=== PATIENT | male | born 1975 | race Caucasian/White ===

== ENCOUNTER 2021-12-30 10:15 | Emergency (ER) | payer MEDICAID, OTHER ==
[~2021-12-30] VITALS: Ht 167.6 cm; Wt 87.5 kg
[2021-12-30] MEDS ORDERED: ONDANSETRON ODT 4 MG TAB PO ONE (13:45)
[2021-12-30] MEDS ORDERED: MORPHINE SULFATE INJECTION 2 MG/ML SYRG IM ONE (13:45)
[2021-12-30] MEDS ORDERED: ACE3T PO (13:53)
[2021-12-30 13:57] VITALS: BP 118/85
== END 2021-12-30 14:12 | disposition home or self-care (01) ==
LOC: ER 10:15
DX: S16.1XXA Strain of muscle, fascia and tendon at neck level, initial encounter (principal); S63.502A Unspecified sprain of left wrist, initial encounter; S20.211A Contusion of right front wall of thorax, initial encounter; G89.29 Other chronic pain; M54.9 Dorsalgia, unspecified; Z79.899 Other long term (current) drug therapy; W01.0XXA Fall on same level from slipping, tripping and stumbling without subsequent striking against object, initial encounter; Y93.89 Activity, other specified; Y92.89 Other specified places as the place of occurrence of the external cause; Y99.8 Other external cause status
CPT/HCPCS: 29125; 71250; 72125; 73110; 96372; 99284; J2270; Q0162

== ENCOUNTER 2022-01-06 13:42 | Inpatient (IN) | payer MEDICAID ==
[~2022-01-06] VITALS: Ht 170.2 cm; Wt 85.0 kg
[~2022-01-06 13:42] MED LIST: ACE3T PO
[2022-01-06 14:35] LABS: Eosinophils # (auto) 0.1 10 ^3/uL (0-0.8); Lymphocytes # (auto) 0.8 10 ^3/uL (0.4-5.4); Monocytes # (auto) 0.6 10 ^3/uL (0-1.3); Monocytes % (auto) 6.2 % (0.0-12.0); Nucleated Red Blood Cells % 0.1 %
[2022-01-06 14:36] LABS: Basophils # (auto) 0 10 ^3/uL (0-0.2); Basophils % (auto) 0.4 % (0.0-2.0); Eosinophils % (auto) 0.8 % (0.0-7.0); Hematocrit 48.6 % (41.0-53.0); Hemoglobin 16.3 g/dL (13.5-17.5); Lymphocytes % (auto) 7.7 % (10.0-50.0); Mean Corpuscular Hemoglobin 25.2 pg (28.0-32.0); Mean Corpuscular Hgb Conc. 33.6 g/dL (32.0-36.0); Mean Corpuscular Volume 74.9 fL (80.0-100.0); Neutrophils # (auto) 8.9 10 ^3/uL (1.6-8.6); Neutrophils % (auto) 84.9 % (37.0-80.0); Red Blood Cells 6.49 10^6/uL (4.5-5.90); Red Cell Distribution Width 16.7 % (11.8-14.3); White Blood Cell 10.4 10^3/uL (4.4-10.8)
[2022-01-06 14:58] LABS: Albumin 2.9 g/dL (3.4-5.0); BUN/Creatinine Ratio 16.5; Calcium 8.6 mg/dL (8.5-10.1); Potassium 4.3 mmol/L (3.5-5.1)
[2022-01-06 15:01] LABS: Bilirubin, Total 0.3 mg/dL (0.2-1.0); Total Protein 6.9 g/dL (6.4-8.2)
[2022-01-06] MEDS ORDERED: diphenhdrAMINE HCL 50 MG/1 ML VL IV ONE (19:30)
[2022-01-06] MEDS ORDERED: SODIUM CHLORIDE 0.9% 1,000 ML IV ONE (19:30)
[2022-01-06] MEDS ORDERED: KETOROLAC TROMETH 30 MG/ML 1ML VIAL IV ONE (19:30)
[2022-01-06] MEDS ORDERED: TEMAZEPAM 15 MG CAP PO PRN (22:15)
[2022-01-06] MEDS ORDERED: HYDROcodone-ACET 5/325MG TAB PO PRN (22:15)
[2022-01-06 23:17] LABS: Calcium 8.2 mg/dL (8.5-10.1); Potassium 4.2 mmol/L (3.5-5.1)
[2022-01-06 23:25] LABS: BUN/Creatinine Ratio 16.7; CRP High Sensitivity 5.7 mg/dL (< 0.3)
[2022-01-07 02:57] VITALS: BP 127/86
[2022-01-07 03:00] VITALS: BP 127/86
[2022-01-07] MEDS: KETOROLAC TROMETH 30 MG/ML 1ML VIAL IV PRN ×2 (03:18→09:25)
[2022-01-07 09:00] VITALS: BP 138/85
[2022-01-07] MEDS: PANTOPRAZOLE 40 MG TAB PO SCH (09:25)
[2022-01-07] MEDS ORDERED: CEFTRIAXONE SODIUM 2 GM in D5W 5% 50 ML IV ONE (11:00)
[2022-01-07] MEDS ORDERED: VANCOMYCIN PER PHARMACY 0 MG IV SCH (11:00)
[2022-01-07 12:00] VITALS: BP 138/70
[2022-01-07 12:16] LABS: Basophils # (auto) 0 10 ^3/uL (0-0.2); Eosinophils # (auto) 0.1 10 ^3/uL (0-0.8); Eosinophils % (auto) 1.5 % (0.0-7.0); Lymphocytes # (auto) 0.7 10 ^3/uL (0.4-5.4); Mean Corpuscular Volume 75.5 fL (80.0-100.0); Monocytes # (auto) 0.5 10 ^3/uL (0-1.3); Red Cell Distribution Width 16.5 % (11.8-14.3)
[2022-01-07 12:19] LABS: Basophils % (auto) 0.4 % (0.0-2.0); Hemoglobin 15.1 g/dL (13.5-17.5); Lymphocytes % (auto) 8.4 % (10.0-50.0); Mean Corpuscular Hemoglobin 24.8 pg (28.0-32.0); Mean Corpuscular Hgb Conc. 32.9 g/dL (32.0-36.0); Monocytes % (auto) 6.6 % (0.0-12.0); Neutrophils # (auto) 6.5 10 ^3/uL (1.6-8.6); Neutrophils % (auto) 83.1 % (37.0-80.0); Nucleated Red Blood Cells % 0.1 %; White Blood Cell 7.8 10^3/uL (4.4-10.8)
[2022-01-07 12:28] LABS: Albumin 2.5 g/dL (3.4-5.0); BUN/Creatinine Ratio 16.5; Calcium 8.3 mg/dL (8.5-10.1); Potassium 4.3 mmol/L (3.5-5.1)
[2022-01-07 12:30] LABS: Bilirubin, Total 0.5 mg/dL (0.2-1.0)
[2022-01-07 12:59] LABS: Thyroid Stimulating Hormone 1.1 uIU/mL (0.358-3.74)
[2022-01-07] MEDS ORDERED: GADOTERATE MEG 7.5 MMOL/15ml INJ (0.5MMOL/ml) IV ONE (13:23)
[2022-01-07] MEDS: SODIUM CHLORIDE 0.9% 1,000 ML IV SCH (14:53)
[2022-01-07] MEDS: MORPHINE SULFATE INJECTION 2 MG/ML SYRG IV PRN ×2 (14:58→18:58)
[2022-01-07] MEDS: VANCOMYCIN 1GM/250ML 250 ML IV SCH (15:30)
[2022-01-07 16:00] VITALS: BP 134/73
[2022-01-07] MEDS: ACETAMINOPHEN 325 MG TAB PO PRN (19:14)
[2022-01-07] MEDS ORDERED: LORazepam 2MG/ML-1ML VIAL IV PRN (21:30)
[2022-01-07 22:00] VITALS: BP 130/77
[2022-01-08] MEDS: CEFTRIAXONE SODIUM 2 GM in D5W 5% 50 ML IV SCH ×3 (00:01→21:20)
[2022-01-08] MEDS: MORPHINE SULFATE INJECTION 2 MG/ML SYRG IV PRN ×3 (00:03→15:04)
[2022-01-08 05:00] VITALS: BP 121/66
[2022-01-08 07:13] LABS: Basophils % (auto) 0.6 % (0.0-2.0); Eosinophils # (auto) 0.1 10 ^3/uL (0-0.8); Lymphocytes # (auto) 0.7 10 ^3/uL (0.4-5.4); Monocytes # (auto) 0.4 10 ^3/uL (0-1.3)
[2022-01-08 07:14] LABS: Basophils # (auto) 0.1 10 ^3/uL (0-0.2); Eosinophils % (auto) 1.1 % (0.0-7.0); Hematocrit 44.3 % (41.0-53.0); Hemoglobin 14.9 g/dL (13.5-17.5); Lymphocytes % (auto) 7.5 % (10.0-50.0); Mean Corpuscular Hemoglobin 25.1 pg (28.0-32.0); Mean Corpuscular Hgb Conc. 33.5 g/dL (32.0-36.0); Mean Corpuscular Volume 74.9 fL (80.0-100.0); Monocytes % (auto) 4.8 % (0.0-12.0); Neutrophils # (auto) 7.5 10 ^3/uL (1.6-8.6); Nucleated Red Blood Cells % 0.2 %; Red Blood Cells 5.92 10^6/uL (4.5-5.90); Red Cell Distribution Width 16.7 % (11.8-14.3); White Blood Cell 8.7 10^3/uL (4.4-10.8)
[2022-01-08] MEDS: SODIUM CHLORIDE 0.9% 1,000 ML IV SCH ×2 (07:30→17:24)
[2022-01-08 09:00] VITALS: BP 116/67
[2022-01-08] MEDS: PANTOPRAZOLE 40 MG TAB PO SCH (09:15)
[2022-01-08] MEDS ORDERED: DOXY25TA9 PO (09:23)
[2022-01-08] MEDS: ONDANSETRON HCL 4 MG/2 ML VIAL IV PRN ×2 (09:35→15:04)
[2022-01-08 11:20] LABS: INR 1.2 (0.9-1.15); Partial Thromboplastin Time 28.2 sec (23.6-33.0)
[2022-01-08] MEDS ORDERED: LIDOCAINE 2%HCL (LOCAL ANESTH.) INJ 10ml MDV ONE (11:36)
[2022-01-08 11:58] LABS: Hepatitis B Core IgM Negative
[2022-01-08 13:04] VITALS: BP 112/60
[2022-01-08 15:28] LABS: CSF White Blood Cells 18 CUMM (0-5)
[2022-01-08] MEDS ORDERED: CYCL-839 PO (16:00)
[2022-01-08] MEDS ORDERED: TRAZ50TA2 PO (16:00)
[2022-01-08] MEDS ORDERED: IBUP600T27 PO (16:00)
[2022-01-08] MEDS ORDERED: GABA-339 PO (16:00)
[2022-01-08] MEDS ORDERED: OMEP20TA PO (16:00)
[2022-01-08] MEDS ORDERED: DOCUSATE SOD 100 MG CAP PO PRN (16:00)
[2022-01-08] MEDS ORDERED: CHOL20007 PO (16:00)
[2022-01-08] MEDS ORDERED: FERR27TA2 PO (16:00)
[2022-01-08] MEDS ORDERED: PYRI1TAB3 PO (16:00)
[2022-01-08] MEDS ORDERED: DOCU100T15 PO (16:00)
[2022-01-08] MEDS ORDERED: PYRI1TAB10 PO (16:01)
[2022-01-08 17:00] VITALS: BP 157/87
[2022-01-08] MEDS: VANCOMYCIN 1GM/250ML 250 ML IV SCH (17:00)
[2022-01-08 17:31] LABS: Protein, Urine 347.9 mg/dL (0.0-11.9)
[2022-01-08 22:00] VITALS: BP 134/79
[2022-01-08] MEDS: traZODone HCL 50 MG TAB PO SCH (22:18)
[2022-01-09] MEDS: VANCOMYCIN 1GM/250ML 250 ML IV SCH ×3 (02:30→23:12)
[2022-01-09 05:00] VITALS: BP 134/78
[2022-01-09] MEDS: SODIUM CHLORIDE 0.9% 1,000 ML IV SCH ×2 (05:34→21:25)
[2022-01-09 08:26] LABS: Urine Bacteria NONE SEEN /hpf (None Seen); Urine Blood Negative /uL (Negative); Urine Specific Gravity 1.015 (1.001-1.035); Urine WBC 1 /hpf (0 - 3)
[2022-01-09 08:53] VITALS: BP 130/91
[2022-01-09] MEDS: PANTOPRAZOLE 40 MG TAB PO SCH (09:56)
[2022-01-09] MEDS: CEFTRIAXONE SODIUM 2 GM in D5W 5% 50 ML IV SCH ×2 (09:56→21:25)
[2022-01-09] MEDS: ACETAMINOPHEN 325 MG TAB PO PRN ×2 (10:23→23:12)
[2022-01-09] MEDS ORDERED: ACYCLOVIR 10MG/KG Q8HR PER RX 0 ML IV STA (10:26)
[2022-01-09 13:00] VITALS: BP 132/87
[2022-01-09] MEDS ORDERED: LOSARTAN POTASSIUM 25 MG TAB PO ONE (14:00)
[2022-01-09 17:00] VITALS: BP 133/82
[2022-01-09] MEDS: ACYCLOVIR SOD 50MG/ML 800 MG in SODIUM CHL 0.9% 250 ML IV SCH ×2 (17:20→21:24)
[2022-01-09] MEDS: traZODone HCL 50 MG TAB PO SCH (21:40)
[2022-01-09 22:00] VITALS: BP 145/79
[2022-01-10] MEDS: ACYCLOVIR SOD 50MG/ML 800 MG in SODIUM CHL 0.9% 250 ML IV SCH ×3 (04:25→20:29)
[2022-01-10 05:00] VITALS: BP 123/79
[2022-01-10] MEDS: SODIUM CHLORIDE 0.9% 1,000 ML IV SCH ×2 (05:00→14:07)
[2022-01-10 06:12] LABS: Potassium 3.9 mmol/L (3.5-5.1)
[2022-01-10 06:19] LABS: BUN/Creatinine Ratio 10.2; Calcium 8.6 mg/dL (8.5-10.1)
[2022-01-10 07:30] VITALS: BP 132/87
[2022-01-10 08:00] VITALS: BP 140/87
[2022-01-10] MEDS: CEFTRIAXONE SODIUM 2 GM in D5W 5% 50 ML IV SCH ×2 (09:38→23:07)
[2022-01-10] MEDS: VANCOMYCIN 1GM/250ML 250 ML IV SCH ×2 (09:38→18:23)
[2022-01-10] MEDS: PANTOPRAZOLE 40 MG TAB PO SCH (09:39)
[2022-01-10] MEDS: LOSARTAN POTASSIUM 25 MG TAB PO SCH (09:39)
[2022-01-10 12:00] VITALS: BP 141/88
[2022-01-10] MEDS: ONDANSETRON HCL 4 MG/2 ML VIAL IV PRN (15:24)
[2022-01-10] MEDS: MORPHINE SULFATE INJECTION 2 MG/ML SYRG IV PRN (15:24)
[2022-01-10 16:00] VITALS: BP 131/74
[2022-01-10] MEDS: ACETAMINOPHEN 325 MG TAB PO PRN (20:39)
[2022-01-10 22:00] VITALS: BP 138/83
[2022-01-10] MEDS: traZODone HCL 50 MG TAB PO SCH (23:07)
[2022-01-11] MEDS: SODIUM CHLORIDE 0.9% 1,000 ML IV SCH ×3 (01:09→21:51)
[2022-01-11] MEDS: ACYCLOVIR SOD 50MG/ML 800 MG in SODIUM CHL 0.9% 250 ML IV SCH ×3 (04:00→20:13)
[2022-01-11 05:00] VITALS: BP 138/88
[2022-01-11] MEDS: VANCOMYCIN 1GM/250ML 250 ML IV SCH ×2 (05:20→14:37)
[2022-01-11 08:00] VITALS: BP 143/99
[2022-01-11] MEDS: CEFTRIAXONE SODIUM 2 GM in D5W 5% 50 ML IV SCH ×2 (09:04→21:51)
[2022-01-11] MEDS: PANTOPRAZOLE 40 MG TAB PO SCH (09:05)
[2022-01-11] MEDS: LOSARTAN POTASSIUM 25 MG TAB PO SCH (09:05)
[2022-01-11] MEDS: ACETAMINOPHEN 325 MG TAB PO PRN ×2 (09:18→19:10)
[2022-01-11 12:00] VITALS: BP 141/85
[2022-01-11 13:59] LABS: Basophils # (auto) 0.1 10 ^3/uL (0-0.2); Eosinophils # (auto) 0.1 10 ^3/uL (0-0.8); Eosinophils % (auto) 1.1 % (0.0-7.0); Neutrophils # (auto) 5.7 10 ^3/uL (1.6-8.6); White Blood Cell 7.6 10^3/uL (4.4-10.8)
[2022-01-11 14:01] LABS: Basophils % (auto) 0.8 % (0.0-2.0); Hematocrit 46.7 % (41.0-53.0); Hemoglobin 15.6 g/dL (13.5-17.5); Lymphocytes # (auto) 1.4 10 ^3/uL (0.4-5.4); Lymphocytes % (auto) 17.8 % (10.0-50.0); Mean Corpuscular Hemoglobin 24.9 pg (28.0-32.0); Mean Corpuscular Hgb Conc. 33.4 g/dL (32.0-36.0); Mean Corpuscular Volume 74.6 fL (80.0-100.0); Monocytes # (auto) 0.4 10 ^3/uL (0-1.3); Monocytes % (auto) 5.3 % (0.0-12.0); Nucleated Red Blood Cells % 0.2 %; Red Blood Cells 6.26 10^6/uL (4.5-5.90); Red Cell Distribution Width 16.4 % (11.8-14.3)
[2022-01-11 14:10] LABS: INR 1.14 (0.9-1.15)
[2022-01-11 15:39] LABS: Urine Bacteria FEW /hpf (None Seen); Urine Blood TRACE /uL (Negative); Urine Mucus FEW (None Seen); Urine WBC 1 /hpf (0 - 3)
[2022-01-11 16:00] VITALS: BP 135/82
[2022-01-11] MEDS: MORPHINE SULFATE INJECTION 2 MG/ML SYRG IV PRN ×2 (16:35→21:52)
[2022-01-11] MEDS: ONDANSETRON HCL 4 MG/2 ML VIAL IV PRN (16:40)
[2022-01-11] MEDS: traZODone HCL 50 MG TAB PO SCH (21:51)
[2022-01-11 21:54] VITALS: BP 128/84
[2022-01-12] MEDS: VANCOMYCIN 1GM/250ML 250 ML IV SCH (01:33)
[2022-01-12] MEDS: ACYCLOVIR SOD 50MG/ML 800 MG in SODIUM CHL 0.9% 250 ML IV SCH (04:38)
[2022-01-12 04:54] VITALS: BP 138/84
[2022-01-12] MEDS: SODIUM CHLORIDE 0.9% 1,000 ML IV SCH ×2 (07:00→17:00)
[2022-01-12 09:09] VITALS: BP 118/80
[2022-01-12] MEDS ORDERED: MORPHINE SULFATE 4 MG/ML SYR/VIAL IV PRN ×2 (09:45→13:30)
[2022-01-12] MEDS: CEFTRIAXONE SODIUM 2 GM in D5W 5% 50 ML IV SCH (10:00)
[2022-01-12] MEDS: PANTOPRAZOLE 40 MG TAB PO SCH (10:16)
[2022-01-12] MEDS: LOSARTAN POTASSIUM 25 MG TAB PO SCH (10:18)
[2022-01-12 13:00] VITALS: BP 143/94
[2022-01-12] MEDS: PENICILLIN G POTASSIUM 4,000,000 UNITS in D5W 5% 50 ML IV SCH ×5 (13:32→22:09)
[2022-01-12 17:05] VITALS: BP 146/94
[2022-01-12] MEDS ORDERED: HYDROcodone-ACET 5/325MG TAB PO PRN (17:45)
[2022-01-12] MEDS: MORPHINE SULFATE 4 MG/ML SYR/VIAL IV PRN (20:20)
[2022-01-12 22:00] VITALS: BP 135/80
[2022-01-12] MEDS: traZODone HCL 50 MG TAB PO SCH (22:10)
[2022-01-13] MEDS: PENICILLIN G POTASSIUM 4,000,000 UNITS in D5W 5% 50 ML IV SCH ×6 (01:51→21:46)
[2022-01-13] MEDS: SODIUM CHLORIDE 0.9% 1,000 ML IV SCH ×2 (02:06→11:48)
[2022-01-13 05:00] VITALS: BP 140/77
[2022-01-13 06:29] LABS: Potassium 4.1 mmol/L (3.5-5.1)
[2022-01-13 06:30] LABS: BUN/Creatinine Ratio 10.6; Calcium 8.3 mg/dL (8.5-10.1)
[2022-01-13 08:36] VITALS: BP 146/97
[2022-01-13] MEDS: PANTOPRAZOLE 40 MG TAB PO SCH (10:28)
[2022-01-13] MEDS ORDERED: APIXABAN 5 MG TAB PO ONE (11:30)
[2022-01-13 12:43] VITALS: BP 143/104
[2022-01-13] MEDS ORDERED: APIX5TAB PO (12:48)
[2022-01-13 16:39] VITALS: BP 132/79
[2022-01-13 21:02] VITALS: BP 140/80
[2022-01-13] MEDS: traZODone HCL 50 MG TAB PO SCH (21:46)
[2022-01-13] MEDS: APIXABAN 5 MG TAB PO SCH (21:47)
[2022-01-14] MEDS: PENICILLIN G POTASSIUM 4,000,000 UNITS in D5W 5% 50 ML IV SCH ×3 (02:12→11:02)
[2022-01-14] MEDS: SODIUM CHLORIDE 0.9% 1,000 ML IV SCH ×2 (02:13→09:34)
[2022-01-14] MEDS: ONDANSETRON HCL 4 MG/2 ML VIAL IV PRN (02:13)
[2022-01-14] MEDS: MORPHINE SULFATE 4 MG/ML SYR/VIAL IV PRN (02:14)
[2022-01-14 05:00] VITALS: BP 142/79
[2022-01-14 09:00] VITALS: BP 123/71
[2022-01-14] MEDS: PANTOPRAZOLE 40 MG TAB PO SCH (09:42)
[2022-01-14] MEDS: APIXABAN 5 MG TAB PO SCH (09:42)
[2022-01-14] MEDS ORDERED: HYDR-4902 PO (11:32)
[2022-01-14 11:40] VITALS: BP 118/80
[2022-01-20] MEDS ORDERED: APIXABAN 5 MG TAB PO SCH (10:00)
== END 2022-01-14 13:41 | disposition home health service (06) | DRG 51 ==
LOC: ER 13:42 → OVERFLOW 22:12 → WEST WING 01-07 02:45
PROVIDERS: ADMIT Nurse Practitioner; ATTEND Internal Medicine Nephrology
PROC: 009U3ZX Drainage of Spinal Canal, Percutaneous Approach, Diagnostic (ICD-10-PCS; principal; 2022-01-06)
PROC: B01B1ZZ Fluoroscopy of Spinal Cord using Low Osmolar Contrast (ICD-10-PCS; 2022-01-06)
PROC: 05HB33Z Insertion of Infusion Device into Right Basilic Vein, Percutaneous Approach (ICD-10-PCS; 2022-01-08)
PROC: B54MZZA Ultrasonography of Right Upper Extremity Veins, Guidance (ICD-10-PCS; 2022-01-08)
PROC: 05HC33Z Insertion of Infusion Device into Left Basilic Vein, Percutaneous Approach (ICD-10-PCS; 2022-01-13)
PROC: B54NZZA Ultrasonography of Left Upper Extremity Veins, Guidance (ICD-10-PCS; 2022-01-13)
DX: A87.9 Viral meningitis, unspecified (principal); B49 Unspecified mycosis; I82.621 Acute embolism and thrombosis of deep veins of right upper extremity; A53.0 Latent syphilis, unspecified as early or late; D72.829 Elevated white blood cell count, unspecified; E78.5 Hyperlipidemia, unspecified; S16.1XXA Strain of muscle, fascia and tendon at neck level, initial encounter; M65.9 Synovitis and tenosynovitis, unspecified; G02 Meningitis in other infectious and parasitic diseases classified elsewhere; T78.40XA Allergy, unspecified, initial encounter; Z20.822 Contact with and (suspected) exposure to COVID-19; G89.29 Other chronic pain; M19.012 Primary osteoarthritis, left shoulder; M54.50 Low back pain, unspecified; I82.611 Acute embolism and thrombosis of superficial veins of right upper extremity; S63.502A Unspecified sprain of left wrist, initial encounter; X58.XXXA Exposure to other specified factors, initial encounter; Y93.89 Activity, other specified; Z79.01 Long term (current) use of anticoagulants; Y92.89 Other specified places as the place of occurrence of the external cause; Y99.8 Other external cause status
CPT/HCPCS: 36415; 62272; 70551; 71046; 72100; 72141; 72142; 72157; 73221; 76536; 80048; 80053; 80202; 81001; 82550; 82565; 82570; 82945; 83516; 83520; 83605; 83615; 84156; 84157; 84443; 85025; 85610; 85652; 85730; 86141; 86200; 86225; 86235; 86256; 86431; 86592; 86635; 86703; 86705; 86803; 87040; 87070; 87086; 87205; 87340; 87529; 87899; 89051; 93971; 96361; 96374; 96375; G0378; J0696; J1885; J2001; J2405; J7060

== ENCOUNTER 2023-12-22 11:30 | Inpatient (IN) | payer MEDICAID, SELFPAY ==
[~2023-12-22] VITALS: Ht 172.7 cm; Wt 91.6 kg
[~2023-12-22 11:30] MED LIST changes: +APIX5TAB PO; +CHOL20007 PO; +CYCL-839 PO; +DOCU100T15 PO; +DOXY25TA9 PO; +FERR1TAB31 PO; +GABA-339 PO; +HYDR-4902 PO; +OMEP20TA PO; +PYRI1TAB10 PO; +PYRI1TAB3 PO; +TRAZ-227 PO
[2023-12-22 12:36] LABS: Basophils # (auto) 0 10 ^3/uL (0-0.2); Basophils % (auto) 0.5 % (0.0-2.0); Eosinophils # (auto) 0.1 10 ^3/uL (0-0.8); Eosinophils % (auto) 1.7 % (0.0-7.0); Hemoglobin 19.4 g/dL (13.5-17.5); Lymphocytes % (auto) 32.6 % (10.0-50.0); Mean Corpuscular Hemoglobin 25.1 pg (28.0-32.0); Mean Corpuscular Hgb Conc. 32.5 g/dL (32.0-36.0); Mean Corpuscular Volume 77.4 fL (80.0-100.0); Monocytes # (auto) 0.6 10 ^3/uL (0-1.3); Monocytes % (auto) 9.3 % (0.0-12.0); Neutrophils # (auto) 3.3 10 ^3/uL (1.6-8.6); Neutrophils % (auto) 55.9 % (37.0-80.0); Nucleated Red Blood Cells % 0.1 %; Red Blood Cells 7.72 10^6/uL (4.5-5.90); Red Cell Distribution Width 16.7 % (11.8-14.3)
[2023-12-22 12:37] LABS: Hematocrit 59.7 % (41.0-53.0)
[2023-12-22 13:00] LABS: Alanine Aminotransferase 63 U/L (7-40); Albumin 4.2 g/dL (3.2-4.8); Alkaline Phosphatase 53 U/L (46-116); Anion Gap 4 (5-15); Aspartate Aminotransferase 56 U/L (13-40); BUN/Creatinine Ratio 10.9 (10.0-20.0); Bilirubin, Total 0.8 mg/dL (0.2-1.0); Blood Urea Nitrogen 15 mg/dL (9-23); Calcium 9.3 mg/dL (8.5-10.1); Carbon Dioxide 26 mmol/L (20-30); Chloride 108 mmol/L (98-107); Glucose 98 mg/dL (74-106); Potassium 4.6 mmol/L (3.5-5.1); Sodium 138 mmol/L (136-145); Total Protein 6.7 g/dL (5.7-8.2)
[2023-12-22 13:29] LABS: Urine Bacteria None Seen /hpf (None Seen)
[2023-12-22 13:45] LABS: Urine Blood Negative /uL (Negative); Urine Clarity Clear (Clear); Urine Color Light-Yellow (Yellow); Urine Protein, UAD Negative (Negative); Urine Urobilinogen Normal (Negative); Urine WBC 1 /hpf (0 - 3)
[2023-12-22] MEDS ORDERED: ASPirin-EC 81 mg tab PO ONE (13:45)
[2023-12-22] MEDS ORDERED: ONDANSETRON HCL 4 MG/2 ML VIAL IV PRN (14:15)
[2023-12-22] MEDS ORDERED: DOCUSATE SOD 100 MG CAP PO PRN (14:15)
[2023-12-22] MEDS ORDERED: NITROGLYCERIN 0.4 MG SL TAB SL PRN (14:15)
[2023-12-22] MEDS ORDERED: ACETAMINOPHEN 325 MG TAB PO PRN (14:15)
[2023-12-22] MEDS ORDERED: MORPHINE SULFATE INJ 2 MG/ml SYRG IV PRN ×2 (14:15)
[2023-12-22] MEDS ORDERED: ATOR20TA50 PO (14:26)
[2023-12-22 15:44] VITALS: PULSE 99; RESP 18; O2SAT 97
[2023-12-22] MEDS ORDERED: IOHEXOL 350 MG/ML 100ML IJ ONE (16:17)
[2023-12-22 18:05] VITALS: BP 114/87; PULSE 86; RESP 18; TEMP 98; O2SAT 97
[2023-12-22 18:14] VITALS: BP 114/87; PULSE 86; RESP 18; TEMP 98; O2SAT 97
[2023-12-22 20:00] VITALS: PULSE 100; PULSE 94; RESP 18; O2SAT 96
[2023-12-22 21:00] VITALS: BP_SYST 134; BP_SYST 151; BP_DIAS 76; BP_DIAS 88; PULSE 95; PULSE 98
[2023-12-22 21:04] VITALS: BP 132/84; PULSE 92; RESP 18; TEMP 98.4; O2SAT 96
[2023-12-22] MEDS: GABAPENTIN 300 MG CAP PO SCH (21:22)
[2023-12-22] MEDS: HYDROcodone-ACET 5/325MG TAB PO PRN (21:22)
[2023-12-23 01:00] VITALS: BP 118/69; PULSE 80; RESP 19; TEMP 98.4; O2SAT 100
[2023-12-23 05:00] VITALS: BP 123/77; PULSE 90; RESP 18; TEMP 98; O2SAT 98
[2023-12-23 05:36] LABS: Basophils # (auto) 0 10 ^3/uL (0-0.2); Eosinophils # (auto) 0.1 10 ^3/uL (0-0.8); Monocytes # (auto) 0.5 10 ^3/uL (0-1.3); Nucleated Red Blood Cells % 0.4 %; White Blood Cell 6.3 10^3/uL (4.4-10.8)
[2023-12-23 05:41] LABS: Basophils % (auto) 0.2 % (0.0-2.0); Hemoglobin 18.4 g/dL (13.5-17.5); Lymphocytes # (auto) 1.9 10 ^3/uL (0.4-5.4); Lymphocytes % (auto) 30.8 % (10.0-50.0); Mean Corpuscular Hgb Conc. 32.2 g/dL (32.0-36.0); Mean Corpuscular Volume 77.8 fL (80.0-100.0); Monocytes % (auto) 8.4 % (0.0-12.0); Neutrophils # (auto) 3.7 10 ^3/uL (1.6-8.6); Neutrophils % (auto) 58.6 % (37.0-80.0); Red Blood Cells 7.35 10^6/uL (4.5-5.90); Red Cell Distribution Width 16.7 % (11.8-14.3)
[2023-12-23 05:51] LABS: Hematocrit 57.2 % (41.0-53.0)
[2023-12-23 05:55] LABS: Alanine Aminotransferase 53 U/L (7-40); Albumin 3.8 g/dL (3.2-4.8); Alkaline Phosphatase 44 U/L (46-116); Anion Gap 3 (5-15); Aspartate Aminotransferase 41 U/L (13-40); BUN/Creatinine Ratio 8.5 (10.0-20.0); Blood Urea Nitrogen 11 mg/dL (9-23); Calcium 8.7 mg/dL (8.5-10.1); Carbon Dioxide 27 mmol/L (20-30); Chloride 108 mmol/L (98-107); Glucose 82 mg/dL (74-106); Potassium 4.4 mmol/L (3.5-5.1); Sodium 138 mmol/L (136-145)
[2023-12-23 08:00] VITALS: BP 128/75; PULSE 79; PULSE 93; RESP 16; TEMP 97.4; O2SAT 96
[2023-12-23] MEDS: ATORVASTATIN 20 MG TAB PO SCH (09:34)
[2023-12-23] MEDS: PANTOPRAZOLE 40 MG TAB PO SCH (09:34)
[2023-12-23] MEDS: ASPirin-EC 81 mg tab PO SCH (09:35)
[2023-12-23 12:00] VITALS: BP 126/63; PULSE 75; RESP 16; TEMP 98.7; O2SAT 95
[2023-12-23] MEDS ORDERED: ZOLPIDEM TARTRATE 5 MG TAB PO PRN (13:30)
[2023-12-23] MEDS: traMADol HCL 50 MG TAB PO PRN (13:44)
[2023-12-23 16:00] VITALS: BP 138/69; PULSE 93; RESP 18; TEMP 98.1; O2SAT 93
[2023-12-23] MEDS ORDERED: TRAZ-228 PO (16:40)
[2023-12-23] MEDS ORDERED: CYA100I IM (16:42)
[2023-12-23] MEDS ORDERED: TRAM50TA2 PO (16:42)
[2023-12-23] MEDS ORDERED: [UNRECOGNIZED DRUG - CODE] PO (16:42)
[2023-12-23] MEDS ORDERED: ZOLP5TAB5 PO (16:42)
== END 2023-12-23 17:06 | disposition left against medical advice (07) | DRG 841 ==
LOC: ER 11:30 → TELE 14:23 → TELE-WESTW 17:33
PROVIDERS: ADMIT Nurse Practitioner Family; ATTEND Family Medicine
DX: D45 Polycythemia vera (principal); N17.9 Acute kidney failure, unspecified; G47.33 Obstructive sleep apnea (adult) (pediatric); Z53.29 Procedure and treatment not carried out because of patient's decision for other reasons; E78.00 Pure hypercholesterolemia, unspecified; F40.240 Claustrophobia; Z91.199 Patient's noncompliance with other medical treatment and regimen due to unspecified reason; Z79.82 Long term (current) use of aspirin; Z83.3 Family history of diabetes mellitus; Z86.61 Personal history of infections of the central nervous system; Z86.718 Personal history of other venous thrombosis and embolism
CPT/HCPCS: 36415; 70450; 71045; 71275; 80053; 81001; 82728; 82962; 83540; 83605; 83880; 84484; 85025; 85379; 87040; 93005; G0378

== ENCOUNTER → 2024-06-22 | Outpatient (CLI) | payer OTHER ==
[~2024-06-22] MED LIST changes: -ACE3T PO; -APIX5TAB PO; +ATOR20TA50 PO; -CHOL20007 PO; +CYA100I IM; -DOCU100T15 PO; -DOXY25TA9 PO; -FERR1TAB31 PO; -HYDR-4902 PO; -PYRI1TAB10 PO; -PYRI1TAB3 PO; +TRAM50TA2 PO; -TRAZ-227 PO; +TRAZ-228 PO; +ZOLP5TAB5 PO; +[UNRECOGNIZED DRUG - CODE] PO
[2024-06-22 09:41] LABS: Urine Bacteria None Seen /hpf (None Seen)
[2024-06-22 09:56] LABS: Basophils # (auto) 0 10 ^3/uL (0-0.2); Eosinophils # (auto) 0.1 10 ^3/uL (0-0.8); Hemoglobin 15.9 g/dL (13.5-17.5); Lymphocytes # (auto) 1.9 10 ^3/uL (0.4-5.4); Monocytes # (auto) 0.5 10 ^3/uL (0-1.3); Neutrophils % (auto) 57.9 % (37.0-80.0)
[2024-06-22 09:58] LABS: Basophils % (auto) 0.3 % (0.0-2.0); Eosinophils % (auto) 1.6 % (0.0-7.0); Hematocrit 48.1 % (41.0-53.0); Mean Corpuscular Hemoglobin 25.2 pg (28.0-32.0); Mean Corpuscular Hgb Conc. 33.1 g/dL (32.0-36.0); Monocytes % (auto) 8.2 % (0.0-12.0); Neutrophils # (auto) 3.5 10 ^3/uL (1.6-8.6); Nucleated Red Blood Cells % 0.4 %; Platelet Count (auto) 175 10^3/uL (140-450); Red Blood Cells 6.33 10^6/uL (4.5-5.90); White Blood Cell 6.1 10^3/uL (4.4-10.8)
[2024-06-22 10:02] LABS: Urine Blood Negative /uL (Negative); Urine Clarity Clear (Clear); Urine Color Yellow (Yellow); Urine Mucus FEW (None Seen); Urine Protein, UAD TRACE (Negative); Urine Specific Gravity 1.032 (1.001-1.035); Urine Urobilinogen Normal (Negative); Urine WBC 1 /hpf (0 - 3)
[2024-06-22 10:23] LABS: Alanine Aminotransferase 38 U/L (7-40); Albumin 4.6 g/dL (3.2-4.8); Alkaline Phosphatase 53 U/L (46-116); Anion Gap 7 (5-15); Aspartate Aminotransferase 26 U/L (13-40); Blood Urea Nitrogen 20 mg/dL (9-23); Calcium 9.9 mg/dL (8.7-10.4); Carbon Dioxide 25 mmol/L (20-31); Chloride 109 mmol/L (98-107); Cholesterol 156 mg/dL (< 200); Glucose 91 mg/dL (74-106); HDL Cholesterol 33 mg/dL (40-59); LDL Cholesterol 112 mg/dL (< 100); Magnesium 2.1 mg/dL (1.6-2.6); Potassium 4.1 mmol/L (3.5-5.1); Sodium 141 mmol/L (136-145); Triglycerides 102 mg/dL (< 150)
[2024-06-22 10:24] LABS: Bilirubin, Total 0.6 mg/dL (0.2-1.0); Total Protein 6.9 g/dL (5.7-8.2)
[2024-06-22 10:46] LABS: Uric Acid 5.6 mg/dL (3.7-9.2)
[2024-06-22 10:54] LABS: Folate (Folic Acid) 27.2 ng/mL (>5.38)
== END | disposition home or self-care (01) ==
LOC: LAB 09:21
PROVIDERS: ATTEND Internal Medicine
DX: E78.5 Hyperlipidemia, unspecified (principal); E55.9 Vitamin D deficiency, unspecified; R94.6 Abnormal results of thyroid function studies; R82.90 Unspecified abnormal findings in urine; E61.2 Magnesium deficiency; R82.79 Other abnormal findings on microbiological examination of urine; R79.89 Other specified abnormal findings of blood chemistry; G47.33 Obstructive sleep apnea (adult) (pediatric)
CPT/HCPCS: 36415; 80053; 80061; 81001; 82306; 82607; 82746; 83036; 83735; 84403; 84443; 84550; 85025; 87086

== ENCOUNTER → 2024-08-01 | Outpatient (CLI) | payer OTHER ==
[2024-08-01 07:33] LABS: Urine Bacteria None Seen /hpf (None Seen)
[2024-08-01 07:52] LABS: Basophils # (auto) 0 10 ^3/uL (0-0.2); Basophils % (auto) 0.3 % (0.0-2.0); Eosinophils # (auto) 0.4 10 ^3/uL (0-0.8); Eosinophils % (auto) 4.1 % (0.0-7.0); Hematocrit 52.1 % (41.0-53.0); Hemoglobin 16.7 g/dL (13.5-17.5); Lymphocytes # (auto) 2.1 10 ^3/uL (0.4-5.4); Lymphocytes % (auto) 20.7 % (10.0-50.0); Mean Corpuscular Hemoglobin 23.4 pg (28.0-32.0); Mean Corpuscular Volume 73.1 fL (80.0-100.0); Monocytes # (auto) 0.7 10 ^3/uL (0-1.3); Monocytes % (auto) 6.9 % (0.0-12.0); Neutrophils # (auto) 6.7 10 ^3/uL (1.6-8.6); Nucleated Red Blood Cells % 0.1 %; Platelet Count (auto) 219 10^3/uL (140-450); Red Blood Cells 7.13 10^6/uL (4.5-5.90); Red Cell Distribution Width 16.4 % (11.8-14.3); White Blood Cell 9.9 10^3/uL (4.4-10.8)
[2024-08-01 08:00] LABS: Urine Blood Negative /uL (Negative); Urine Clarity Clear (Clear); Urine Color Yellow (Yellow); Urine Protein, UAD TRACE (Negative); Urine Specific Gravity 1.024 (1.001-1.035); Urine Urobilinogen Normal (Negative); Urine WBC 8 /hpf (0 - 3)
[2024-08-01 08:12] LABS: Alanine Aminotransferase 110 U/L (7-40); Albumin 4.2 g/dL (3.2-4.8); Alkaline Phosphatase 47 U/L (46-116); Anion Gap 1 (5-15); Aspartate Aminotransferase 97 U/L (13-40); BUN/Creatinine Ratio 12.2 (10.0-20.0); Bilirubin, Total 0.7 mg/dL (0.2-1.0); Blood Urea Nitrogen 15 mg/dL (9-23); Calcium 8.9 mg/dL (8.7-10.4); Carbon Dioxide 28 mmol/L (20-31); Chloride 106 mmol/L (98-107); Cholesterol 164 mg/dL (< 200); Glucose 87 mg/dL (74-106); HDL Cholesterol 22 mg/dL (40-59); LDL Cholesterol 137 mg/dL (< 100); Potassium 4.5 mmol/L (3.5-5.1); Sodium 135 mmol/L (136-145); Total Protein 6.7 g/dL (5.7-8.2); Triglycerides 147 mg/dL (< 150)
[2024-08-01 08:49] LABS: Uric Acid 3.8 mg/dL (3.7-9.2)
[2024-08-01 09:26] LABS: Folate (Folic Acid) 28.23 ng/mL (>5.38)
== END | disposition home or self-care (01) ==
LOC: LAB 07:13
PROVIDERS: ATTEND Internal Medicine
DX: R79.89 Other specified abnormal findings of blood chemistry (principal); R68.89 Other general symptoms and signs; R73.09 Other abnormal glucose; Z79.899 Other long term (current) drug therapy
CPT/HCPCS: 36415; 80053; 80061; 81001; 82306; 82607; 82746; 83036; 84443; 84550; 85025; 87086

== ENCOUNTER 2024-10-14 11:51 | Emergency (ER) | payer BC, OTHER ==
[~2024-10-14] VITALS: Ht 172.7 cm; Wt 85.7 kg
[2024-10-14 12:55] LABS: Urine Bacteria None Seen /hpf (None Seen)
--- NOTE | 2024-10-14 12:56 | ED.PDOC ---
GI ASSESSMENT HPI Comments 49y M who presents to the ED for chief complaint of GI bleeding. Pt states he has been having vomiting with associated blood in stool since Wednesday. Pt states he has history of chronic back pain and was taking Tylenol for 1 year straight and states he developed ulcer. Pt presents with friend who states he recommended pt be on PPI meds to help with the bleeding but states pt continued to have melena and came to the ED for further evaluation. Pt otherwise states his pain is epigastric in location, constant, sharp in nature, with no associated exacerbating or relieving factors. Pt otherwise denies any other symptoms at this time. Chief Complaint: Abdominal Pain Time Seen by MD: 12:54 Reviewed Notes: Nurses Notes, Medications, Allergies Allergies: Coded Allergies: NO KNOWN ALLERGIES (Unverified , 01/07/22) Home Meds Reported Medications Zolpidem Tartrate (Zolpidem Tartrate) 5 Mg Tab, 1 TAB PO HS 12/23/23 Desvenlafaxine Succinate Monoh (Desvenlafaxine ER) 25 Mg Tab, 1 TAB PO DAILY 12/23/23 Vitamin B12 (Vitamin B-12) 1,000 Mcg/1 Ml Ij, 1 ML IM QWEEKLY 12/23/23 Tramadol Hcl (Tramadol Hcl) 50 Mg Tab, 1-2 TAB PO QID 12/23/23 Trazodone Hcl (Trazodone Hcl) 100 Mg Tab, 1 TAB PO HS PRN 12/23/23 Atorvastatin Calcium (ATORVASTATIN CALCIUM) 20 Mg Tab, 1 TAB PO DAILY 12/22/23 Omeprazole (Gnp Omeprazole) 20 Mg Tab, 1 TAB PO BID, #90 TAB 1 Refill 01/08/22 Gabapentin (Gabapentin) 600 Mg Tab, 1 TAB PO TID, #90 TAB 3 Refills 01/08/22 Cyclobenzaprine Hcl (Cyclobenzaprine Hcl) 10 Mg Tab, 1 TAB PO TID 01/08/22 Information Source: Patient, Friend Mode of Arrival: Ambulatory Brought in by: friend Past Medical History PAST MEDICAL HISTORY: Cancer, High Lipids Surgical History: Tonsillectomy Family History Family History: Reviewed,noncontributory to illness Social History Smoker: Non-Smoker Alcohol: Denies ETOH Use Drugs: Denies Drug Use Lives In: Home Constitutional: denies: chills, diaphoresis, fatigue, fever, malaise, sweats, weakness, others EENTM: denies: blurred vision, double vision, ear bleeding, ear discharge, ear drainage, ear pain, ear ringing, eye pain, eye redness, hearing loss, mouth pain, mouth swelling, nasal discharge, nose bleeding, nose congestion, nose pain, photophobia, tearing, throat pain, throat swelling, voice changes, others Respiratory: denies: cough, hemoptysis, orthopnea, SOB at rest, shortness of breath, SOB with excertion, stridor, wheezing, others Cardiovascular: denies: chest pain, dizzy spells, diaphoresis, Dyspnea on exertion, edema, irregular heart beat, left arm pain, lightheadedness, palpitations, PND, syncope, others Gastrointestinal: reports: abdominal pain, blood streaked bowels, vomiting; denies: abdomen distended, constipated, diarrhea, dysphagia, difficulty swallowing, hematemesis, melena, nausea, poor appetite, poor fluid intake, rectal bleeding, rectal pain, others Genitourinary: denies: burning, dysuria, flank pain, frequency, hematuria, incontinence, penile discharge, penile sore, pain, testicle pain, testicle swelling, urgency, others Neurological: denies: dizziness, fainting, headache, left sided numbness, left sided weakness, numbness, paresthesia, pre-existing deficit, right sided numbness, right sided weakness, seizure, speech problems, tingling, tremors, weakness, others Musculoskeletal: denies: back pain, gout, joint pain, joint swelling, muscle pain, muscle stiffness, neck pain, others Integumetry: denies: bruises, change in color, change in hair/nails, dryness, laceration, lesions, lumps, rash, wounds, others Allergic/Immunocompromised: denies: Difficulty Healing, Frequent Infections, Hives, Itching, others Hematologic/Lymphatic: denies: anemia, blood clots, easy bleeding, easy bruising, swollen glands, others Endocrine: denies: excessive hunger, excessive sweating, excessive thirst, excessive urination, flushing, intolerance to cold, intolerance to heat, unexplained weight gain, unexplained weight loss, others Psychiatric: denies: anxiety, bipolar disorder, depression, hopeless, panic disorder, schizophrenia, sleepless, suicidal, others All Other Systems: Reviewed and Negative Physical Exam General Appearance: Moderate Distress HEENT: Normal ENT Inspection, Pharynx Normal, TMs Normal Neck: Full Range of Motion, Non-Tender, Normal, Normal Inspection Respiratory: Chest Non-Tender, Lungs Clear, No Accessory Muscle Use, No Respiratory Distress, Normal Breath Sounds Cardiovascular: No Edema, No JVD, No Murmur, No Gallop, Normal Peripheral Pulses, Regular Rate/Rhythm Breast Exam: Deferred Gastrointestinal: Epigastric, Soft, Tenderness Genitalia: Deferred Pelvic: Deferred Rectal: Black stool Extremities: No calf tenderness, Normal capillary refill, Normal inspection, Normal range of motion, Non-tender, No pedal edema Musculoskeletal : Apperance: Normal Neurologic: Alert, 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 Was a procedure done?: No GI differential Dx Differential Diagnosis: Diverticular disease, Gastritis/PUD, GI hemorrhage, Inflammatory BD, Ischemic Bowel, Trauma intraabdominal, Stress Ulcer X-Ray, Labs, Meds, VS Vital Signs Date Time Temp Pulse Resp B/P (MAP) Pulse Ox O2 Delivery O2 Flow Rate FiO2 10/14/24 14:12 99 16 139/80 10/14/24 14:10 99 16 99 Room Air* 0 21 10/14/24 13:50 98.7 99 16 139/80 (99) 98 98.7 10/14/24 12:10 97.5 109 18 138/91 (107) 98 Lab Test 10/14/24 12:55 10/14/24 12:51 Range/Units Urine Color Yellow Yellow Urine Clarity Clear Clear Urine pH 5.5 5.0-9.0 Urine Specific [place] 1.030 1.001-1.035 Urine Protein Trace H Negative Urine Ketones Trace Negative Urine Blood Trace H Negative /uL Urine Nitrite Negative Negative Urine Bilirubin Negative Negative Urine Urobilinogen Normal Negative mg/dL Urine Leukocyte Esterase Negative Negative /uL Urine RBC 1 0 - 3 /hpf Urine Microscopic WBC 4 H 0-3 /HPF Urine Squamous Epithelial Cells Few <5 /hpf Urine Bacteria None seen None Seen /hpf Urine Mucus Few None Seen Urine Glucose Normal Normal mg/dL White Blood Count 13.2 H 4.4-10.8 10^3/uL Red Blood Count 7.22 H 4.5-5.90 10^6/uL Hemoglobin 16.5 13.5-17.5 g/dL Hematocrit 51.0 41.0-53.0 % Mean Corpuscular Volume 70.7 L 80.0-100.0 fL Mean Corpuscular Hemoglobin 22.9 L 28.0-32.0 pg Mean Corpuscular Hemoglobin Concent 32.4 32.0-36.0 g/dL Red Cell Distribution Width 18.5 H 11.8-14.3 % Platelet Count 201 140-450 10^3/uL Mean Platelet Volume 10.1 6.9-10.8 fL Neutrophils (%) (Auto) 90.0 H 37.0-80.0 % Lymphocytes (%) (Auto) 5.9 L 10.0-50.0 % Monocytes (%) (Auto) 3.5 0.0-12.0 % Eosinophils (%) (Auto) 0.4 0.0-7.0 % Basophils (%) (Auto) 0.2 0.0-2.0 % Neutrophils # (Auto) 11.9 H 1.6-8.6 10 ^3/uL Lymphocytes # (Auto) 0.8 0.4-5.4 10 ^3/uL Monocytes # (Auto) 0.5 0-1.3 10 ^3/uL Eosinophils # (Auto) 0.1 0-0.8 10 ^3/uL Basophils # (Auto) 0 0-0.2 10 ^3/uL Nucleated Red Blood Cells 0.0 % Prothrombin Time 12.3 H 9.3-11.8 sec Prothrombin Time INR 1.18 H 0.9-1.15 Activated Partial Thromboplast Time 24.5 24.5-34.5 SEC Sodium Level 138 136-145 mmol/L Potassium Level 4.1 3.5-5.1 mmol/L Chloride Level 108 H 98-107 mmol/L Carbon Dioxide Level 24 20-31 mmol/L Anion Gap 6 5-15 Blood Urea Nitrogen 18 9-23 mg/dL Creatinine 1.23 0.700-1.30 mg/dL Glomerular Filtration Rate Calc 72 >90 mL/min BUN/Creatinine Ratio 14.6 10.0-20.0 Serum Glucose 112 H 74-106 mg/dL Calcium Level 8.9 8.7-10.4 mg/dL Total Bilirubin 1.0 0.2-1.0 mg/dL Aspartate Amino Transferase (AST) 48 H 13-40 U/L Alanine Aminotransferase (ALT) 69 H 7-40 U/L Alkaline Phosphatase 43 L 46-116 U/L Total Protein 6.8 5.7-8.2 g/dL Albumin 4.4 3.2-4.8 g/dL Lipase 39 12-53 U/L Current Medications Medications (Trade) Dose Ordered Sig/Sonya Route Start Time Stop Time Status Last Admin Ondansetron HCl (Zofran) 4 mg ONCE ONCE IV 10/14/24 12:30 10/14/24 12:31 DC 10/14/24 14:10 Sodium Chloride 1,000 ml @ 1,000 mls/hr Q1H ONCE IVB 10/14/24 12:30 10/14/24 13:29 DC 10/14/24 13:30 Morphine Sulfate 4 mg ONCE ONCE IV 10/14/24 12:30 10/14/24 12:31 DC 10/14/24 14:12 Pantoprazole Sodium (Protonix) 40 mg ONCE ONCE IV 10/14/24 12:30 10/14/24 12:31 DC 10/14/24 14:10 Time of 1ST Reevaluation: 13:30 Reevaluation 1ST: Unchanged Time of 2ND Reevaluation: 14:50 Reevaluation 2ND: Unchanged Patient Education/Counseling: Diagnosis, Treatment Family Education/Counseling: Diagnosis, Treatment Departure 1 Departure Time of Disposition: 14:50 Impression: Primary Impression: Epigastric pain Additional Impression: Upper GI bleed Disposition: ADMITTED INPATIENT Condition: Guarded Discharged With: Self Critical Care Note Critical Care Time?: Yes (45 min-critical care time only) Critical care comment: Total critical care time: Approximately 36 minutes Due to a high probability of clinically significant, life threatening deterioration, the patient required my highest level of preparedness to intervene emergently and I personally spent this critical care time directly and personally managing the patient. This critical care time included obtaining a history; examining the patient; pulse oximetry; ordering and review of studies; arranging urgent treatment with development of a management plan; evaluation of patient's response to treatment; frequent reassessment; and, discussions with other providers. This critical care time was performed to assess and manage the high probability of imminent, life-threatening deterioration that could result in multi-organ failure. It was exclusive of separately billable procedures and treating other patients. Stability Stability form required: No Heart Score Heart Score: Heart Score Response (Comments) Value History N/A 0 EKG N/A 0 Age N/A 0 Risk Factors N/A 0 Troponin N/A 0 Total 0 I personally scribed for MATI MCCLENDON MD ([email or web address]) on 10/14/24 at 12:56. Electronically submitted by Farhan Finney ([email or web address]). MATI MCCLENDON MD Oct 14, 2024 12:56
[2024-10-14 13:17] LABS: Urine Blood TRACE /uL (Negative); Urine Clarity Clear (Clear); Urine Color Yellow (Yellow); Urine Mucus FEW (None Seen); Urine Protein, UAD TRACE (Negative); Urine Squamous Epithelial Cell FEW /hpf (<5); Urine Urobilinogen Normal (Negative); Urine WBC 4 /HPF (0-3); Urine pH 5.5 (5.0-9.0)
[2024-10-14 13:18] LABS: Basophils # (auto) 0 10 ^3/uL (0-0.2); Lymphocytes # (auto) 0.8 10 ^3/uL (0.4-5.4); Mean Corpuscular Volume 70.7 fL (80.0-100.0); Monocytes # (auto) 0.5 10 ^3/uL (0-1.3); Monocytes % (auto) 3.5 % (0.0-12.0)
[2024-10-14 13:20] LABS: Basophils % (auto) 0.2 % (0.0-2.0); Eosinophils # (auto) 0.1 10 ^3/uL (0-0.8); Eosinophils % (auto) 0.4 % (0.0-7.0); Hemoglobin 16.5 g/dL (13.5-17.5); Lymphocytes % (auto) 5.9 % (10.0-50.0); Mean Corpuscular Hemoglobin 22.9 pg (28.0-32.0); Mean Corpuscular Hgb Conc. 32.4 g/dL (32.0-36.0); Neutrophils # (auto) 11.9 10 ^3/uL (1.6-8.6); Platelet Count (auto) 201 10^3/uL (140-450); Red Blood Cells 7.22 10^6/uL (4.5-5.90); Red Cell Distribution Width 18.5 % (11.8-14.3); White Blood Cell 13.2 10^3/uL (4.4-10.8)
[2024-10-14 13:26] LABS: Albumin 4.4 g/dL (3.2-4.8); Anion Gap 6 (5-15); BUN/Creatinine Ratio 14.6 (10.0-20.0); Blood Urea Nitrogen 18 mg/dL (9-23); Calcium 8.9 mg/dL (8.7-10.4); Carbon Dioxide 24 mmol/L (20-31); Lipase 39 U/L (12-53); Potassium 4.1 mmol/L (3.5-5.1); Sodium 138 mmol/L (136-145); Total Protein 6.8 g/dL (5.7-8.2)
[2024-10-14 13:27] LABS: Alanine Aminotransferase 69 U/L (7-40); Alkaline Phosphatase 43 U/L (46-116); Aspartate Aminotransferase 48 U/L (13-40); Chloride 108 mmol/L (98-107); Glucose 112 mg/dL (74-106)
[2024-10-14] MEDS: SODIUM CHLORIDE 0.9% 1,000 ML IVB ONE (13:30)
[2024-10-14 13:35] LABS: INR 1.18 (0.9-1.15); Partial Thromboplastin Time 24.5 SEC (24.5-34.5); Prothrombin Time 12.3 sec (9.3-11.8)
[2024-10-14 14:10] VITALS: PULSE 99; RESP 16; O2SAT 99
[2024-10-14] MEDS: PANTOPRAZOLE 40 MG/10 ML VIAL INJ IV ONE (14:10)
[2024-10-14] MEDS: ONDANSETRON HCL 4 MG/2 ML VIAL IV ONE (14:10)
[2024-10-14] MEDS: MORPHINE SULFATE 4 MG/ML SYR/VIAL IV ONE (14:12)
[2024-10-14] MEDS: IOHEXOL 300 MG/ML 100ML BOTTLE IJ ONE (14:34)
--- NOTE | 2024-10-14 14:42 | DVH ---
EXAM: CT Abdomen and Pelvis With Intravenous Contrast CLINICAL INDICATION: abd pain , GI bleed TECHNIQUE: Axial computed tomography images of the abdomen and pelvis with intravenous contrast. is CT exam was performed using one or more of the following dose reduction techniques: automated exp osure control, adjustment of the mA and/or kV according to patient size, and/or use of iterative chalo nstruction technique. RADIATION DOSE: CTDlvol= CTDIvol mGy, DLP= 541.81 mGy-cm COMPARISON: None FINDINGS: LUNG BASES: Unremarkable. No mass. No consolidation. ABDOMEN: LIVER: Hepatomegaly with fatty infiltration. GALLBLADDER AND BILE DUCTS: Unremarkable. No calcified stones. No ductal dilation. PANCREAS: Unremarkable. No mass. No ductal dilation. SPLEEN: Unremarkable. No splenomegaly. ADRENALS: Unremarkable. No mass. KIDNEYS AND URETERS: Unremarkable. No stones within either kidney. No hydronephrosis. STOMACH AND BOWEL: Unremarkable. No mucosal thickening. No bowel obstruction. PELVIS: APPENDIX: Normal appendix. BLADDER: Unremarkable. No mass. REPRODUCTIVE: Unremarkable as visualized. ABDOMEN and PELVIS: INTRAPERITONEAL SPACE: Unremarkable. No free air. No significant fluid collection. BONES/JOINTS: No acute fracture. No dislocation. SOFT TISSUES: Umbilical hernia containing fat. VASCULATURE: Unremarkable. No abdominal aortic aneurysm. LYMPH NODES: Unremarkable. No enlarged lymph nodes. OTHER FINDINGS: No obvious contrast extravasation to suggest active bleed. However, this is not a d edicated CT angiogram. . . IMPRESSION: 1. Normal appendix. 2. No bowel obstruction. 3. Hepatomegaly with fatty infiltration. 4. No obstructive uropathy. 5. Umbilical hernia containing fat. 6. No obvious contrast extravasation to suggest active bleed. However, this is not a dedicated CT a ngiogram.
[2024-10-14 20:09] VITALS: BP 135/83; PULSE 98; RESP 17; TEMP 98.5; O2SAT 99
== END 2024-10-14 20:28 | disposition left against medical advice (07) ==
LOC: ER 11:51
DX: K92.2 Gastrointestinal hemorrhage, unspecified (principal); E78.5 Hyperlipidemia, unspecified; G89.29 Other chronic pain; Z90.89 Acquired absence of other organs; Z79.899 Other long term (current) drug therapy
CPT/HCPCS: 36415; 74177; 80053; 81001; 83690; 85025; 85610; 85730; 86850; 86900; 86901; 96361; 96374; 96375; 99285; J2270; J2405; J2470; J7030; Q9967

== ENCOUNTER 2025-03-22 15:49 | Emergency (ER) | payer BC, OTHER | END 2025-03-22 16:42 | LOC: ER 15:49 | DX: R68.89 Other general symptoms and signs (principal); Z53.21 Procedure and treatment not carried out due to patient leaving prior to being seen by health care provider ==